=== PATIENT | female | born 1955 | race Caucasian/White ===

== ENCOUNTER 2017-11-23 11:16 | Emergency (ER) | payer OTHER, SELFPAY ==
[2017-11-23] MEDS ORDERED: Ketamine 50 MG/ML VIAL ONE (12:05)
--- NOTE | 2017-11-23 12:14 | RAD ---
LEFT WRIST THREE VIEWS: 11/23/2017 HISTORY: Injury after falling on hand 11 days ago. FINDINGS: There is a comminuted distal left radial metaphyseal fracture with intraarticular extension of the fr acture fragments. There is mild separation of the fracture fragments with dorsal angulation of the f racture fragments. No additional fracture is seen, and there is no evidence of a dislocation. There is mild subcutaneous soft tissue swelling about the wrist. IMPRESSION: Comminuted fracture, distal left radial metaphysis, with intraarticular extension of the fracture, as well as angulation of fracture fragments. POS: [facility]
[2017-11-23] MEDS ORDERED: Acetaminophen/Codeine 30-300mg Tablet ONE (13:30)
--- NOTE | 2017-11-23 14:03 | RAD ---
2 VIEWS LEFT WRIST: Date: 11/23/17 HISTORY: Post reduction of right wrist fracture. FINDINGS: Splint material now overlies the left forearm, wrist, and hand. There is improvement in angulation of the previously seen comminuted distal left radial metaphyseal fracture with interarticular extension . No other interval change. IMPRESSION: Improvement in alignment of the comminuted fracture distal left radial metaphysis with intraarticular extension. POS: [facility]
== END 2017-11-23 13:44 | disposition home or self-care (01) ==
LOC: BURERS 11:16
DX: S52.572A Other intraarticular fracture of lower end of left radius, initial encounter for closed fracture (principal); I25.10 Atherosclerotic heart disease of native coronary artery without angina pectoris; I25.2 Old myocardial infarction; E03.9 Hypothyroidism, unspecified; E05.90 Thyrotoxicosis, unspecified without thyrotoxic crisis or storm; I10 Essential (primary) hypertension; F32.9 Major depressive disorder, single episode, unspecified; F17.210 Nicotine dependence, cigarettes, uncomplicated; W19.XXXA Unspecified fall, initial encounter
CPT/HCPCS: 25605; 96361; 96374